=== PATIENT | female | born 1945 | race Asian ===

== ENCOUNTER 2021-02-02 08:09 | Day surgery (SDC) | payer OTHER, BC ==
[~2021-02-02] VITALS: Ht 154.9 cm; Wt 66.2 kg
[2021-02-02] MEDS ORDERED: MIDAZOLAM 5 MG/5 ML VIAL ONE (08:54)
[2021-02-02] MEDS ORDERED: fentaNYL citrate 0.05 MG/ML VIAL ONE (08:54)
[2021-02-02] MEDS ORDERED: diphenhydrAMINE 50 MG/ML VIAL ONE (08:54)
[2021-02-02] MEDS ORDERED: MIDAZOLAM 2 MG/2 ML VIAL IVP ONE (10:05)
[2021-02-02] MEDS ORDERED: fentaNYL citrate 0.05 MG/ML VIAL IVP ONE (10:05)
== END 2021-02-02 11:00 | disposition home or self-care (01) ==
LOC: MDS 08:09 → MMU 08:13 → MDS 11:00
PROVIDERS: ATTEND Internal Medicine Gastroenterology
DX: R10.9 Unspecified abdominal pain (principal); K31.9 Disease of stomach and duodenum, unspecified; I10 Essential (primary) hypertension; E03.9 Hypothyroidism, unspecified; E78.5 Hyperlipidemia, unspecified; K21.9 Gastro-esophageal reflux disease without esophagitis; I48.91 Unspecified atrial fibrillation; Z88.1 Allergy status to other antibiotic agents; Z88.5 Allergy status to narcotic agent; Z90.710 Acquired absence of both cervix and uterus; Z79.899 Other long term (current) drug therapy; Z95.0 Presence of cardiac pacemaker; Z79.01 Long term (current) use of anticoagulants
CPT/HCPCS: 43239; 88305; 88312; 88313; 88342; J2250; J3010; J1200